=== PATIENT | male | born 1985 | race American Indian/Alaskan Native ===

== ENCOUNTER 2017-02-19 10:49 | Emergency (ER) | payer SELFPAY ==
[2017-02-19 11:41] VITALS: BP 120/66
--- NOTE | 2017-02-19 12:17 | Emergency Department Report ---
HPI - General Chief Complaint: Dental/Oral Time Seen by Provider: 02/19/17 12:10 - HPI HPI: Patient here reports that he had 2 symptoms. He said he has an abscess to his left lower tooth and right upper tooth. Patient said his left side of his face was swollen but it's gone down. He said that the abscess was draining last night. He is also complaining of generalized aching and and reports sinus congestion and runny nose. Pain to tooth is 10 out of 10 and worse with eating. He reports that he has chills but denies fever. No [id number] medication taken. Patient has a history of chronic back pain. Denies any nausea or vomiting. Denies any urinary burning frequency or urgency. Denies any sore throat or difficulty breathing. Denies any chest pain or coughing. Denies any headache. ED Past Medical Hx - Past Medical History Previous Medical History?: Yes Additional medical history: back pain - Surgical History Past Surgical History?: No - Family History Family history: no significant - Social History Smoking Status: Current Every Day Smoker Substance Use Type: None - Medications Home Medications: Home Medications Medication Instructions Recorded Confirmed Last Taken Type Acetaminophen/Codeine [Tylenol 1 tab PO Q6H PRN #12 tab 02/19/17 Unknown Rx /Codeine # 3 tab] Amoxicillin [Amoxicillin TAB] 875 mg PO BID #20 tablet 02/19/17 Unknown Rx Ibuprofen [Motrin] 600 mg PO Q8H PRN #15 tablet 02/19/17 Unknown Rx ED Review of Systems ROS: Stated complaint: GENERAL PAIN Other details as noted in HPI Comment: All other systems reviewed and negative Constitutional: chills. denies: malaise, weakness Eyes: denies: eye pain, eye discharge ENT: dental pain, congestion. denies: ear pain, throat pain, epistaxis Respiratory: no symptoms reported Cardiovascular: denies: chest pain, palpitations, edema, syncope Gastrointestinal: denies: abdominal pain, nausea, vomiting Musculoskeletal: myalgia. denies: joint swelling, arthralgia Skin: denies: rash Neurological: denies: headache, weakness, numbness, paresthesias, confusion, abnormal gait, vertigo Physical Exam - Physical Exam Vital Signs: Vital Signs 02/19/17 11:38 Temperature 98 F Pulse Rate 59 L Respiratory 16 Rate Blood Pressure 120/66 O2 Sat by Pulse 100 Oximetry General: This is a 32-year-old male well-nourished well-developed in no acute distress. Physical Exam: Head: Normocephalic, atraumatic, no abrasion, no bruising and no contusion. Eyes: Biateral pupils equal and reactive to light, bilateral EOM intact.. Bilateral conjunctival and sclera without injection, normal accommodation. Ears: Bilateral EAC without any redness drainage or swelling, bilateral TM congested without any erythema. Bilateral tragus is normal and nontender. No auricular abnormality. No Mastoid bones tenderness. Nose: Moist, erythema and congested with clear drainage. Maxillary sinus tenderness to palpate. Mouth: Moist, no pharyngeal exudate or erythema. No peritonsillar abscess. Uvula is midline and oral airways patent. Patient with inflamed gums, multiple dental caries, tenderness to palpate around tooth #1, 17 and 18. Mild erythema noted around tooth #1, 17 and 18. No induration noted. No facial swelling. Neck: Supple, No Cervical adenopathy, full range of motion and no C-spine tenderness. No swelling or tracheal deviation Cardiovascular: S1, S2. Regular rate and rhythm. No murmur. Capillary refill is less then 3 seconds. Lungs: Clear to auscultate bilaterally. No rhonchi, wheezes or rales. No chest wall tenderness MSK: Strength 5/5 in all extremities. No joint deformity or crepitus. Normal inspection. Full range of motion to all extremities Extremities: No clubbing, cyanosis or edema. +2 pulses. No neurovascular compromise Skin: Clean, dry and intact. No rash or lesions. Psych: Normal mood and behavior. ED Course Vital Signs 02/19/17 11:38 Temperature 98 F Pulse Rate 59 L Respiratory 16 Rate Blood Pressure 120/66 O2 Sat by Pulse 100 Oximetry - Reevaluation(s) Reevaluation #1: 02/19/17 12:18 Patient stable throughout ED stay. ED Medical Decision Making - Medical Decision Making ED course: Patient here complaining of toothache and body ache with nasal congestion toothache has been ongoing on and off and he said he still amoxicillin in the past his penicillin does not work for him. Physical findings for nasal sinusitis which is more than likely viral in nature and causing his body ache. Patient also with cellulitis oral mucosa, dental caries , gingivitis. He said he fell off daily and gargle with mouthwash. I explained the diagnosis and treatment plan with patient and instructed him that he will need to follow up at [facility] as he does not have a dentist for further treatment for tooth problem. Patient discharged home with his family in stable condition with prescription for amoxicillin, Zyrtec, Flonase, Motrin and Tylenol 3 and I also instructed him that he can follow up with [facility]. Critical care attestation.: If time is entered above; I have spent that time in minutes in the direct care of this critically ill patient, excluding procedure time. ED Disposition Clinical Impression: Tooth ache, Dental caries, Oral cellulitis, Body aches Sinusitis nasal Qualifiers: Sinusitis location: unspecified location Chronicity: acute Recurrence: not specified as recurrent Qualified Code(s): J01.90 - Acute sinusitis, unspecified Disposition: DC- TO HOME OR SELFCARE Is pt being admited?: No Does the pt Need Aspirin: No Condition: Stable Instructions: Dental Caries (ED), Toothache (ED), Gingivitis (ED), Cellulitis ( ED) Additional Instructions: Please take antibiotic as prescribed. Please follow up with dentist at [facility] call today to schedule an appointment You can also follow up at [facility] for medical problems. Please do not drive or operate heavy machinery while taking Tylenol No. 3 as this medication causes drowsiness Please increase her fluid intake and you can take vitamin C the posterior immune system You can flush her sinuses with saline nasal wash and this will help to relieve congestion Continue to floss and gargling mouthwash Prescriptions: Acetaminophen/Codeine [Tylenol /Codeine # 3 tab] 1 tab PO Q6H PRN #12 tab PRN Reason: Toothache Amoxicillin [Amoxicillin TAB] 875 mg PO BID #20 tablet Ibuprofen [Motrin] 600 mg PO Q8H PRN #15 tablet PRN Reason: Pain Referrals: [facility] [Outside] - 02/22/17 [facility] [Outside] - 02/22/17 Forms: Accompanied Note, Work/School Release Form(ED)
== END 2017-02-19 12:56 | disposition home or self-care (01) ==
LOC: ED 10:49
DX: K02.9 Dental caries, unspecified (principal); K12.2 Cellulitis and abscess of mouth; J32.0 Chronic maxillary sinusitis; F17.210 Nicotine dependence, cigarettes, uncomplicated
CPT/HCPCS: 99282